=== PATIENT | female | born 1945 | race Caucasian/White ===

== ENCOUNTER → 2017-08-02 | Outpatient (CLI) | payer MEDICARE ==
--- NOTE | 2017-08-02 14:15 | BD ---
EXAMINATION TYPE: MG DEXA axial skeleton. DATE OF EXAM: 08/02/2017 COMPARISON: NONE CLINICAL HISTORY: M81.0 Osteoporosis Height: 64 Weight: 167.6 FRAX RISK QUESTIONS: Alcohol (3 or more units per day): NO Family History (Parent hip fracture): NO Glucocorticoids (More than 3mos): NO (Ex: prednisone, prednisolone, methylprednisolone, dexamethasone, and hydrocortisone). History of Fracture in Adulthood: NO Secondary Osteoporosis: 1. Type 1 Diabetes: NO 2. Hyperthyroidism: NO 3. Menopause before 45: NO 4. Malnutrition: NO 5. Chronic liver disease: NO Rheumatoid Arthritis: NO Current Tobacco Use: NO RISK FACTORS HISTORY OF: Hip Fracture (Right/Left): NO Spine Fracture: NO History of Wrist Fracture: NO Surgery to Spine/Hip(right/left)/Wrist (right/left): BILATERAL HIP REPLACEMENTS When: 9 YEARS AGO/ 12 YEARS Family History of Osteoporosis: YES Active: YES Diet low in dairy products/other sources of calcium: NO Postmenopausal woman: AROUND AGE 47 Lost more than 2 inches in height since high school: NO Frequent falls: NO Poor Health: NO Hyperparathyroidism: NO Adrenal Insufficiency: NO MEDICATIONS:BLOOD PRESSURE MED EXAM MEASUREMENTS: Bone mineral densitometry was performed using the ki work System. Bone mineral density as measured about the Lumbar spine is: ----- L1-L4(G/cm2): 1.088 T Score Values are as follows: ----- L2: -1.2 ----- L3: -0.6 ----- L4: -0.9 ----- L1-L4: -0.8 Bone mineral density has: DECREASED -7.5 % since study of: 8. IMPRESSION: No evidence for osteoporosis or osteopenia. NOTE: T-SCORE=SD OF THE YOUNG ADULT MEAN.
--- NOTE | 2017-08-03 07:56 | MM ---
Reason for exam: screening (asymptomatic). Last mammogram was performed 1 year and 1 month ago. History: Patient is postmenopausal. Took estrogen for 3 years beginning at age 47. Took progesterone for 3 years beginning at age 47. Physical Findings: A clinical breast exam by your physician is recommended on an annual basis and results should be correlated with mammographic findings. MG 3D Screening Mammo W/Cad Bilateral CC and MLO view(s) were taken. Prior study comparison: July 17, 2016, bilateral MG 3d screening mammo w/cad. July 16, 2015, bilateral MG screening mammo w CAD. The breast tissue is heterogeneously dense. This may lower the sensitivity of mammography. There are stable vascular calcifications. No significant changes when compared with prior studies. ASSESSMENT: Benign, BI-RAD 2 RECOMMENDATION: Routine screening mammogram of both breasts in 1 year.
== END | disposition home or self-care (01) ==
LOC: RADMAMWWP 07:27
PROVIDERS: ATTEND Family Medicine
DX: Z12.31 Encounter for screening mammogram for malignant neoplasm of breast (principal); M81.0 Age-related osteoporosis without current pathological fracture
CPT/HCPCS: 77080; 77063; G0202

== ENCOUNTER → 2018-01-31 | Outpatient (CLI) | payer MEDICARE ==
--- NOTE | 2018-02-04 13:14 | ECHOF ---
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 This was a technically adequate study. The left ventricular size is normal. There is moderate concentric left ventricular hypertrophy. O verall left ventricular systolic function is normal with, an EF between 55 - 60 %. Sigmoid shaped s eptum with focal hypertrophy of the basal septum. The remaining wall thickness is normal. The right ventricle is normal in size. Normal LA size by volume 22+/-6 ml/m2. The right atrium is normal in size. There is mild to moderate aortic valve sclerosis. There is mild aortic stenosis present. Peak/tyrese n gradient across the Aortic Valve is 15.83mmHg / 7.94mmHg. The mitral valve leaflets are mildly thickened. Mild mitral annular calcification present. Mild m itral regurgitation is present. Mild tricuspid regurgitation present. Right ventricular systolic pressure is normal at < 35 mmHg. Trace/mild (physiologic) pulmonic regurgitation. The aortic root size is normal. Normal inferior vena cava with normal inspiratory collapse consistent with estimated right atrial pre ssure of 5 mmHg. There is no pericardial effusion. CONCLUSIONS -------- 1. Sinus rhythm. 2. This was a technically adequate study. 3. The left ventricular size is normal. 4. There is moderate concentric left ventricular hypertrophy. 5. Overall left ventricular systolic function is normal with, an EF between 55 - 60 %. 6. Sigmoid shaped septum with focal hypertrophy of the basal septum. The remaining wall thickness is normal. 7. The right ventricle is normal in size. 8. Normal LA size by volume 22+/-6 ml/m2. 9. The right atrium is normal in size. 10. There is mild to moderate aortic valve sclerosis. 11. There is mild aortic stenosis present. 12. Peak/mean gradient across the Aortic Valve is 15.83mmHg / 7.94mmHg. 13. The mitral valve leaflets are mildly thickened. 14. Mild mitral annular calcification present. 15. Mild mitral regurgitation is present. 16. Mild tricuspid regurgitation present. 17. Right ventricular systolic pressure is normal at < 35 mmHg. 18. Trace/mild (physiologic) pulmonic regurgitation. 19. The aortic root size is normal. 20. Normal inferior vena cava with normal inspiratory collapse consistent with estimated right atrial pressure of 5 mmHg. 21. There is no pericardial effusion. PUBLIC HEALTH SANITARIAN: Genesis Lewis RDCS
== END | disposition home or self-care (01) ==
LOC: RADECHMAIN 15:25
PROVIDERS: ATTEND Family Medicine
DX: I08.3 Combined rheumatic disorders of mitral, aortic and tricuspid valves (principal)
CPT/HCPCS: 93306

== ENCOUNTER → 2018-08-15 | Outpatient (CLI) | payer MEDICARE ==
--- NOTE | 2018-08-15 13:05 | ECHOF ---
Referral Reason:I35.0 Nonrheumatic aortic stenosis MEASUREMENTS -------- HEIGHT: 162.6 cm WEIGHT: 68.0 kg BP: RVIDd: 1.8 cm (< 3.3) IVSd: 0.9 cm (0.6 - 1.1) LVIDd: 3.3 cm (3.9 - 5.3) LVPWd: 1.0 cm (0.6 - 1.1) IVSs: 1.2 cm LVIDs: 2.2 cm LVPWs: 1.2 cm LAESV Index (A-L): 19.24 ml/m Ao Diam: 2.8 cm (2.0 - 3.7) AV Cusp: 1.1 cm (1.5 - 2.6) LA Diam: 3.1 cm (2.7 - 3.8) EPSS: 0.3 cm MV E Jason: 0.89 m/s MV DecT: 283 ms MV A Jason: 0.90 m/s MV E/A Ratio: 1.00 AV maxP.63 mmHg AV meanP.14 mmHg RAP: 5.00 mmHg RVSP: 23.27 mmHg MV EF SLOPE: 87.73 mm/s (70 - 150) MV EXCURSION: 1.71 cm (> 18.000) FINDINGS -------- Sinus rhythm. This was a technically adequate study. The left ventricular size is normal. Left ventricular wall thickness is normal. Overall left vent ricular systolic function is normal with, an EF between 55 - 60 %. The right ventricle is normal in size and function. Normal LA size by volume 22+/-6 ml/m2. The right atrium is normal in size. There is mild to moderate aortic valve sclerosis. There is no evidence of aortic regurgitation. T here is mild aortic stenosis present. Peak/mean gradient across the Aortic Valve is 14.63mmHg / 8.1 4mmHg. The mitral valve leaflets are mildly thickened. Mild mitral annular calcification present. Mild m itral regurgitation is present. Trace tricuspid regurgitation present. Right ventricular systolic pressure is normal at < 35 mmHg. There is no evidence of pulmonary hypertension. Trace/mild (physiologic) pulmonic regurgitation. The aortic root size is normal. Normal inferior vena cava with normal inspiratory collapse consistent with estimated right atrial pre ssure of 5 mmHg. There is no pericardial effusion. CONCLUSIONS -------- 1. Sinus rhythm. 2. This was a technically adequate study. 3. The left ventricular size is normal. 4. Left ventricular wall thickness is normal. 5. Overall left ventricular systolic function is normal with, an EF between 55 - 60 %. 6. Normal LA size by volume 22+/-6 ml/m2. 7. There is mild to moderate aortic valve sclerosis. 8. There is mild aortic stenosis present. 9. Peak/mean gradient across the Aortic Valve is 14.63mmHg / 8.14mmHg. 10. The mitral valve leaflets are mildly thickened. 11. Mild mitral annular calcification present. 12. Mild mitral regurgitation is present. 13. Trace tricuspid regurgitation present. 14. Right ventricular systolic pressure is normal at < 35 mmHg. 15. There is no evidence of pulmonary hypertension. 16. Trace/mild (physiologic) pulmonic regurgitation. 17. The aortic root size is normal. 18. There is no pericardial effusion. PATIENT SERVICES ASSISTANT: Arsenio Clarke RDCS
--- NOTE | 2018-08-15 14:28 | MM ---
Reason for exam: screening (asymptomatic). Last mammogram was performed 1 year ago. History: Patient is postmenopausal. Took estrogen for 3 years beginning at age 47. Took progesterone for 3 years beginning at age 47. Physical Findings: A clinical breast exam by your physician is recommended on an annual basis and results should be correlated with mammographic findings. MG 3D Screening Mammo W/Cad Bilateral CC and MLO view(s) were taken. Prior study comparison: August 02, 2017, bilateral MG 3d screening mammo w/cad. July 17, 2016, bilateral MG 3d screening mammo w/cad. The breast tissue is heterogeneously dense. This may lower the sensitivity of mammography. Finding: There are typically benign vascular, dystrophic, round calcifications in both breasts. Asymmetric breast tissue right central aspect, stable. There is no discrete abnormality. Vessel left posterior breast. ASSESSMENT: Benign, BI-RAD 2 RECOMMENDATION: Routine screening mammogram of both breasts in 1 year.
== END | disposition home or self-care (01) ==
LOC: RADMAMWWP 07:36
PROVIDERS: ATTEND Family Medicine
DX: Z12.31 Encounter for screening mammogram for malignant neoplasm of breast (principal); I35.8 Other nonrheumatic aortic valve disorders; I35.0 Nonrheumatic aortic (valve) stenosis; I34.0 Nonrheumatic mitral (valve) insufficiency
CPT/HCPCS: 77063; 77067; 93306

== ENCOUNTER 2018-09-30 07:46 | Day surgery (SDC) | payer MEDICARE ==
[~2018-09-30 07:46] MED LIST: ALPRAZolam 0.25 MG TAB PO PRN; ALPRAZolam 0.5 MG TAB PO PRN; ASPIRIN 325 MG TAB PO ONE; ATORVASTATIN 80 MG TAB PO ONE; NITROGLYCERIN SL TABS 0.4 MG TAB SUBLINGUAL PRN; SODIUM CHLORIDE 0.9% 1,000 ML in EMPTY BAG 1 BAG IV ONE
[2018-09-30] MEDS ORDERED: MIDAZOLAM 2 MG/2 ML VIAL ONE (08:37)
[2018-09-30] MEDS ORDERED: fentaNYL (PF) 50 MCG/ML 2 ML AMP ONE (08:38)
[2018-09-30] MEDS ORDERED: LIDOCAINE 1% INJ 10MG/ML (20 ML MDV) ONE (08:38)
[2018-09-30] MEDS ORDERED: MIDAZOLAM 2 MG/2 ML VIAL IVP ONE (09:00)
[2018-09-30] MEDS ORDERED: fentaNYL (PF) 50 MCG/ML 2 ML AMP IV ONE (09:00)
[2018-09-30] MEDS ORDERED: LIDOCAINE 1% INJ 10MG/ML (20 ML MDV) SQ ONE ×2 (09:02→11:51)
[2018-09-30] MEDS ORDERED: HEPARIN SODIUM 1,000 UN/ML (10ML VL) ONE (09:20)
[2018-09-30] MEDS ORDERED: IOPAMIDOL-370 125ML BTL INJ ONE (09:27)
--- NOTE | 2018-09-30 10:30 | CC ---
CARDIAC CATHETERIZATION REPORT Referring physician is Dr. Vazquez. INDICATION: Precordial chest pain with abnormal stress test. PROCEDURE NOTE: After obtaining informed consent, left heart catheterization and coronary angiogram were performed via the right femoral artery using standard Aida catheters. Patient tolerated the procedure well without any obvious immediate complications. A femoral angiogram was performed. Patient received moderate conscious sedation and total sedation time was 15 minutes. FINDINGS: 1. HEMODYNAMICS: Left ventricular end-diastolic pressure is 12 to 14 mm. There is no significant gradient across THE aortic valve. 2. LEFT VENTRICULOGRAM: Left ventriculogram is not performed. 3. ANGIOGRAPHIC DATA: Left Main Coronary Artery: Left main coronary artery appears calcified but is free of significant stenosis. Divides into left anterior descending coronary artery and circumflex coronary artery Circumflex coronary artery is a large nondominant vessel that shows a focal 95% stenosis. LAD gives off a large caliber diagonal branch and its midportion has a long segment of 70% stenosis. Right coronary artery is a large dominant vessel that shows mild nonobstructive disease. CONCLUSIONS: 1. A 95% stenosis involving middle portion of the circumflex coronary artery. 2. A long segment of 70% stenosis involving left anterior descending artery. PLAN: Patient will undergo angioplasty with stent placement of circumflex coronary artery and LAD by Dr. Roc Burgess the on-call arabic linguist. MMODL / IJN: [id number] /
--- NOTE | 2018-09-30 10:36 | LTR ---
September 30, 2018 Re: Esther Ramírez Dear Reji: I performed cardiac catheterization on Esther Ramírez. A detailed catheterization note is enclosed for your records. In brief, the invasive angiography revealed critical stenosis involving circumflex coronary artery and significant disease involving mid LAD and patient will undergo angioplasty with stent placement for the same. Thank you for giving me the privilege to participate in the care of this pleasant lady. Sincerely, MD MILLICENT Ruiz / MARGARETN: [id number] /
[2018-09-30] MEDS ORDERED: IV FLUID CONTINUATION 1,000 ML IV ONE (11:29)
[2018-09-30] MEDS: MIDAZOLAM 2 MG/2 ML VIAL IV ONE ×2 (11:51→11:57)
[2018-09-30] MEDS ORDERED: BIVALIRUDIN BOLUS 250 MG/50 ML IV ONE (11:52)
[2018-09-30] MEDS ORDERED: BIVALIRUDIN 250 MG in SODIUM CHLORIDE 0.9% 50 ML IV ONE (11:53)
[2018-09-30] MEDS: NITROGLYCERIN 1000MCG/10ML SYRINGE INTRACORON ONE ×2 (12:05→12:21)
[2018-09-30] MEDS ORDERED: NITROGLYCERIN 1000MCG/10ML SYRINGE INTRACORON ONE (12:05)
[2018-09-30] MEDS ORDERED: IOPAMIDOL-370 100ML BTL INJ ONE ×3 (12:13→12:28)
[2018-09-30] MEDS ORDERED: MORPHINE SULFATE 4 MG/ML SYRINGE IV ONE (12:28)
[2018-09-30] MEDS ORDERED: TICAGRELOR 90 MG TAB PO ONE (12:29)
[2018-09-30] MEDS ORDERED: ZOLPIDEM 5 MG TAB PO PRN (12:37)
[2018-09-30] MEDS ORDERED: NITROGLYCERIN SL TABS 0.4 MG TAB SUBLINGUAL PRN (12:37)
[2018-09-30] MEDS ORDERED: ATROPINE SULFATE 0.1 MG/ML 10ML SYRINGE IV PRN (12:37)
[2018-09-30] MEDS ORDERED: MAG HYDROX/AL HYDROX/SIMETH 30 ML CUP PO PRN (12:37)
[2018-09-30] MEDS ORDERED: RX INFO: IV CONTRAST WAS GIVEN 1 EACH MISC MISCELLANE PRN (12:37)
[2018-09-30] MEDS ORDERED: NITROGLYCERIN SL TABS 0.4 MG TAB SUBLINGUAL SCH (13:04)
[2018-09-30 14:59] VITALS: BMI 24.9
[2018-09-30] MEDS: SODIUM CHLORIDE 0.9% 1,000 ML IV SCH (15:17)
[2018-09-30] MEDS: ATENOLOL 25 MG TAB PO SCH (20:51)
--- NOTE | 2018-09-30 20:55 | CC ---
CARDIAC CATHETERIZATION REPORT DATE OF SERVICE: 09/30/2018 PROCEDURES: 1. Percutaneous transluminal coronary angioplasty and stenting of mid circumflex coronary artery with a drug-eluting stent. 2. Percutaneous transluminal coronary angioplasty and stenting of a long segment of mid left anterior descending coronary artery with 2 drug-eluting stents. PERFORMED BY: Dr. Fam Burgess. Moderate conscious sedation time was about 42 minutes. CLINICAL INFORMATION: Mrs. Esther Ramírez is a 73-year-old lady with history of diet-controlled diabetes, hypertension, hyperlipidemia, with symptoms of angina and a positive stress test. She was seen and evaluated by Dr. Higgins, who performed a cardiac cath that revealed a tight 95% stenosis involving the mid portion of a non-dominant circumflex coronary artery which also had other areas of 30% to 40% narrowing. Additionally, LAD had a long 80% lesion. She was advised intervention that was performed on the same day. PROCEDURE NOTE: The existing 6-Faroese introducer in the right femoral artery was used to perform the procedure. A standard left Aida type guide catheter was used to cannulate the left coronary artery. A run-through wire was used to cross the lesion in the circumflex coronary artery. A 2.5 caliber 8 mm long NC Trek balloon was used to pre-dilate the lesion. A 2.75 caliber 12 mm long Xience stent was deployed in the mid circumflex at 12 atmospheres. Excellent angiographic result was achieved without complication. Patient had mild chest discomfort and ST depression involving the precordial V1 and V2 leads. Attention was then turned to the LAD lesion. The same wire was advanced and positioned in the distal LAD. Without predilatation a 23 mm long 2.75 caliber Xience stent was deployed in the long segment of disease in the LAD. Patient had significant chest pain, ventricular ectopy and ST elevation in the precordial leads. Proximal to the stented segment was an area of haziness, and this was addressed with a 2.5 caliber 8 mm Xience stent that was telescoped into it. Excellent angiographic result was achieved without complication. Patient received Angiomax bolus and infusion. She also received Brilinta 180 mg orally. The sheath was then taken out and a Perclose device used to secure hemostasis and she was sent to the room in a stable condition. Excellent angiographic result without complication was achieved. Results were discussed with the patient and her . I expect she will be discharged tomorrow if she remains stable. MMBRENNA / IJN: [id number] /
[2018-09-30] MEDS ORDERED: ATORVASTATIN 80 MG TAB PO SCH (23:00)
[2018-10-01 00:05] VITALS: RESP 16
[2018-10-01] MEDS: SODIUM CHLORIDE 0.9% 1,000 ML IV SCH (03:51)
[2018-10-01 06:17] LABS: Basophils % (A) 0 %; Eosinophils # (A) 0.2 k/uL (0-0.7); Eosinophils % (A) 3 %; HGB 12.3 gm/dL (11.4-16.0); Lymphocytes # (A) 1.6 k/uL (1.0-4.8); Lymphocytes % (A) 27 %; MCHC 32.4 g/dL (31.0-37.0); MCV 98.8 fL (80.0-100.0); Mean Platelet Volume 7.1; Monocytes # (A) 0.3 k/uL (0-1.0); Monocytes % (A) 5 %; Neutrophils # (A) 3.9 k/uL (1.3-7.7); Neutrophils % (A) 63 %; Platelet Count 306 k/uL (150-450); RBC 3.84 m/uL (3.80-5.40); RDW 13.4 % (11.5-15.5); WBC 6.1 k/uL (3.8-10.6)
[2018-10-01 06:28] LABS: Anion Gap 5 mmol/L; Blood Urea Nitrogen 13 mg/dL (7-17); Calcium 9.4 mg/dL (8.4-10.2); Carbon Dioxide 28 mmol/L (22-30); Chloride 104 mmol/L (98-107); Glucose 92 mg/dL (74-99); Potassium 3.8 mmol/L (3.5-5.1); Sodium 137 mmol/L (137-145)
[2018-10-01] MEDS ORDERED: ASPIRIN 81 MG PO SCH (09:00)
[2018-10-01] MEDS ORDERED: HYDROCHLOROTHIAZIDE 25 MG TAB PO SCH (09:00)
[2018-10-01] MEDS ORDERED: CLOPIDOGREL 75 MG TAB PO SCH (09:00)
[2018-10-01] MEDS: ATENOLOL 25 MG TAB PO SCH (09:29)
--- NOTE | 2018-10-01 09:37 | DS ---
DISCHARGE SUMMARY DATE OF ADMISSION: 09/30/2018 DATE OF DISCHARGE: 10/01/2018. FINAL DIAGNOSIS: Chest pain with abnormal stress test. PROCEDURES PERFORMED: 1. Left heart catheterization. 2. Angioplasty with stent placement in LAD and circumflex coronary artery. HOSPITAL COURSE: This is a 73-year-old lady that presented to me with symptoms of chest pain, underwent a stress test that showed ischemia and was advised to undergo cardiac catheterization. Cardiac catheterization revealed significant two-vessel coronary artery disease involving LAD and circumflex coronary artery. She underwent angioplasty with stent placement with drug-eluting stents. Her angioplasty went well. She is doing well this morning, free of symptoms, ambulating without any problems. EKG does not reveal ischemic changes. I reviewed her labs. Hemoglobin is 12.3. Platelet count is 306. Potassium is . EKG is normal. CONDITION AT THE TIME OF DISCHARGE: Vital signs are stable. There is no jugular venous distention. Chest exam reveals good air entry bilaterally. Heart exam reveals first and second heart sounds. No gallop. Groin is free of bleeding, bruit, hematoma. Foot pulses are intact. FOLLOWUP: Patient will be followed up in my office in a week's time. DISCHARGE MEDICATIONS: The patient will be discharged home on: \ 1. Aspirin. 2. Atenolol. 3. Imdur. 4. Plavix 75 mg daily. 5. Lipitor 80 mg daily. 6. Sublingual nitroglycerin on p.r.n. basis. 7. Hydrochlorothiazide. MMAJL / MARGARETN: [id number] /
[2018-10-01 09:45] VITALS: BP 113/60; PULSE 77; TEMP 98.1
[2018-10-01] MEDS ORDERED: MULTIVITAMINS, THERA 1 EACH TAB PO SCH (12:00)
== END 2018-10-01 09:35 | disposition home or self-care (01) ==
LOC: CATHCVL 07:46 → 3SCARD 12:32 → CATHCVL 10-01 09:35
PROVIDERS: ATTEND Internal Medicine Cardiovascular Disease
DX: I25.10 Atherosclerotic heart disease of native coronary artery without angina pectoris (principal); R94.39 Abnormal result of other cardiovascular function study; I35.0 Nonrheumatic aortic (valve) stenosis; I10 Essential (primary) hypertension; Z82.49 Family history of ischemic heart disease and other diseases of the circulatory system; Z79.82 Long term (current) use of aspirin; Z79.899 Other long term (current) drug therapy
CPT/HCPCS: 93458; 80048; 85025; C9600 ×2; C1769 ×3; C1887; C1725; C1894; C1760; C1874; J2250; J2270; J2001; J3010; J0583; Q9967 ×2

== ENCOUNTER 2018-11-11 20:17 | Emergency (ER) | payer MEDICARE ==
--- NOTE | 2018-11-11 21:00 | ED ---
General Adult HPI - General Chief complaint: Recheck/Abnormal Lab/Rx Stated complaint: High BP Time Seen by Provider: 11/11/18 20:59 Source: patient, family Mode of arrival: ambulatory Limitations: no limitations - History of Present Illness Initial comments: This patient is a 73-year-old woman who presents to have evaluation for high blood pressure. She reports that she had taken her blood pressure tonight around 7:15, which is routine for her and found that it was in the neighborhood of 170/90. She states that it is never this high so she was concerned. After waiting interval and taking and it was slightly higher so she presented here to be evaluated. The patient states that at the time she had been at home sitting at the table just resting. She did note that she felt like her cheeks were flushed, but she was not having any other real symptoms. She denied having any fever or chills, chest pain, dyspnea, diaphoresis, nausea or vomiting. There was no headache, no abdominal pain. No strokelike symptoms. Onset/Timin -: hour(s) Location: face ([place]) Severity scale (1-10): 0 Consistency: now resolved Improves with: none Worsens with: none Associated Symptoms: denies other symptoms Treatments Prior to Arrival: none - Related Data Home Medications Medication Instructions Recorded Confirmed Aspirin [Adult Low Dose Aspirin EC] 81 mg PO DAILY 08/20/18 11/11/18 Atenolol 25 mg PO BID 08/20/18 11/11/18 Hydrochlorothiazide 25 mg PO DAILY 08/20/18 11/11/18 Calcium Carbonate/Vitamin D3 1 each PO DAILY 09/27/18 11/11/18 [Calcium 500-Vit D3 600 Tablet] Inulin/Chromium Picolinate [Fiber 2 each PO DAILY 09/27/18 11/11/18 Gummies Chew] Isosorbide Mononitrate [Isosorbide 30 mg PO DAILY 09/27/18 11/11/18 Mononitrate ER] Multivit-Min/Iron/Folic/Lutein 1 each PO DAILY 09/27/18 11/11/18 [Centrum Silver Women Tablet] Nitroglycerin 0.4 mg PO DIRECTED 09/30/18 11/11/18 Previous Rx's Medication Instructions Recorded Atorvastatin [Lipitor] 80 mg PO HS #90 tab 10/01/18 Clopidogrel [Plavix] 75 mg PO DAILY #90 tab 10/01/18 Allergies Allergy/AdvReac Type Severity Reaction Status Date / Time ibuprofen [From Advil] AdvReac Abdominal Verified 11/11/18 21:16 Pain nabumetone AdvReac Hallucinati Verified 11/11/18 21:16 ons naproxen [From Aleve] AdvReac Abdominal Verified 11/11/18 21:16 Pain Review of Systems ROS Statement: Those systems with pertinent positive or pertinent negative responses have been documented in the HPI. ROS Other: All systems not noted in ROS Statement are negative. Constitutional: Denies: fever, chills, weakness Eyes: Denies: vision change Respiratory: Denies: cough, dyspnea Cardiovascular: Denies: chest pain, palpitations, dyspnea on exertion, edema, syncope Gastrointestinal: Denies: abdominal pain, nausea, vomiting Genitourinary: Denies: dysuria Musculoskeletal: Denies: back pain Skin: Denies: rash Neurological: Denies: headache, weakness, numbness, paresthesias, confusion Past Medical History Past Medical History: Coronary Artery Disease (CAD), Hyperlipidemia, Hypertension Additional Past Medical History / Comment(s): Aortic Valve disorder, Mitral/ aortic incompetence, regurgitation History of Any Multi-Drug Resistant Organisms: None Reported Past Surgical History: Section, Heart Catheterization With Stent, Joint Replacement, Orthopedic Surgery Additional Past Surgical History / Comment(s): RT knee surgery,BILAT FAM, COLONOSCOPY, Past Anesthesia/Blood Transfusion Reactions: No Reported Reaction Past Psychological History: No Psychological Hx Reported Smoking Status: Never smoker - Past Family History Father Family Medical History: Cancer General Exam Limitations: no limitations General appearance: alert, in no apparent distress Head exam: Present: atraumatic, normocephalic Eye exam: Present: normal appearance. Absent: scleral icterus, conjunctival injection ENT exam: Present: normal oropharynx Neck exam: Present: normal inspection Respiratory exam: Present: normal lung sounds bilaterally. Absent: respiratory distress, wheezes, rales, rhonchi, stridor Cardiovascular Exam: Present: regular rate, normal rhythm, systolic murmur ( Grade 2/6 systolic ejection murmur, insistent with aortic stenosis). Absent: diastolic murmur, rubs, gallop GI/Abdominal exam: Present: soft. Absent: distended, tenderness, guarding, rebound, rigid, mass Extremities exam: Present: normal inspection, normal capillary refill. Absent: pedal edema, calf tenderness Back exam: Present: normal inspection. Absent: CVA tenderness (R), CVA tenderness (L) Neurological exam: Present: alert, oriented X3 Skin exam: Present: warm, dry, intact, normal color. Absent: rash Course Vital Signs 11/11/18 11/11/18 11/11/18 20:28 21:00 21:30 Temperature 98 F Pulse Rate 65 59 L 56 L Respiratory 16 18 16 Rate Blood Pressure 207/79 164/86 162/75 O2 Sat by Pulse 100 97 96 Oximetry 11/11/18 22:00 Temperature Pulse Rate 56 L Respiratory 13 Rate Blood Pressure 158/77 O2 Sat by Pulse 96 Oximetry EKG Findings - EKG Results: EKG: interpreted by RANDY UGARTE, sinus rhythm (Rate 62 bpm), normal axis, normal QRS, normal ST/T, no acute changes - PA, Pacemaker, Normal: Normal tracing: normal tracing Medical Decision Making - Lab Data Result diagrams: 11/11/18 21:10 11/11/18 21:10 Lab Results 11/11/18 11/11/18 Range/Units 21:10 21:10 WBC 5.7 (3.8-10.6) k/uL RBC 3.94 (3.80-5.40) m/uL Hgb 12.4 (11.4-16.0) gm/dL Hct 38.2 (34.0-46.0) % MCV 96.8 (80.0-100.0) fL MCH 31.5 (25.0-35.0) pg MCHC 32.5 (31.0-37.0) g/dL RDW 13.2 (11.5-15.5) % Plt Count 309 (150-450) k/uL Neutrophils % 68 % Lymphocytes % 19 % Monocytes % 6 % Eosinophils % 4 % Basophils % 1 % Neutrophils # 3.9 (1.3-7.7) k/uL Lymphocytes # 1.1 (1.0-4.8) k/uL Monocytes # 0.3 (0-1.0) k/uL Eosinophils # 0.2 (0-0.7) k/uL Basophils # 0.1 (0-0.2) k/uL Sodium 132 L (137-145) mmol/L Potassium 4.1 (3.5-5.1) mmol/L Chloride 97 L (98-107) mmol/L Carbon Dioxide 26 (22-30) mmol/L Anion Gap 9 mmol/L BUN 21 H (7-17) mg/dL Creatinine 0.71 (0.52-1.04) mg/dL Est GFR (CKD-EPI)AfAm >90 (>60 ml/min/1.73 sqM) Est GFR (CKD-EPI)NonAf 85 (>60 ml/min/1.73 sqM) Glucose 111 H (74-99) mg/dL Calcium 9.5 (8.4-10.2) mg/dL Disposition Clinical Impression: Hypertension Disposition: HOME SELF-CARE Condition: Good Instructions: Hypertension (ED) Is patient prescribed a controlled substance at d/c from ED?: No Referrals: Moreno Vazquez DO [Primary Care Provider] - 1-2 days
[2018-11-11 22:06] LABS: Basophils # (A) 0.1 k/uL (0-0.2); Basophils % (A) 1 %; Eosinophils # (A) 0.2 k/uL (0-0.7); Eosinophils % (A) 4 %; HCT 38.2 % (34.0-46.0); HGB 12.4 gm/dL (11.4-16.0); Lymphocytes # (A) 1.1 k/uL (1.0-4.8); Lymphocytes % (A) 19 %; MCH 31.5 pg (25.0-35.0); MCHC 32.5 g/dL (31.0-37.0); MCV 96.8 fL (80.0-100.0); Monocytes # (A) 0.3 k/uL (0-1.0); Monocytes % (A) 6 %; Neutrophils # (A) 3.9 k/uL (1.3-7.7); Neutrophils % (A) 68 %; Platelet Count 309 k/uL (150-450); RBC 3.94 m/uL (3.80-5.40); RDW 13.2 % (11.5-15.5); WBC 5.7 k/uL (3.8-10.6)
[2018-11-11 22:22] LABS: Anion Gap 9 mmol/L; Blood Urea Nitrogen 21 mg/dL (7-17); Calcium 9.5 mg/dL (8.4-10.2); Carbon Dioxide 26 mmol/L (22-30); Chloride 97 mmol/L (98-107); Glucose 111 mg/dL (74-99); Potassium 4.1 mmol/L (3.5-5.1); Sodium 132 mmol/L (137-145)
[2018-11-11 23:05] VITALS: BP 148/74; PULSE 54; RESP 18; TEMP 97.4
== END 2018-11-11 23:07 | disposition home or self-care (01) ==
LOC: EC 20:17
DX: I10 Essential (primary) hypertension (principal); R01.1 Cardiac murmur, unspecified; R23.2 Flushing; I25.10 Atherosclerotic heart disease of native coronary artery without angina pectoris; Z88.6 Allergy status to analgesic agent; Z79.4 Long term (current) use of insulin; Z79.82 Long term (current) use of aspirin; Z79.899 Other long term (current) drug therapy; Z86.79 Personal history of other diseases of the circulatory system; Z95.5 Presence of coronary angioplasty implant and graft; Z96.643 Presence of artificial hip joint, bilateral
CPT/HCPCS: 36415; 80048; 85025; 93005; 99283

== ENCOUNTER 2019-07-18 15:19 | Emergency (ER) | payer MEDICARE ==
[2019-07-18 15:35] VITALS: BP 166/75; PULSE 59; RESP 18; TEMP 97.9
--- NOTE | 2019-07-18 16:28 | US ---
EXAMINATION TYPE: US venous doppler duplex LE RT DATE OF EXAM: 07/18/2019 4:17 PM COMPARISON: NONE CLINICAL HISTORY: Pain. injuried knee while gardening, patient thinks she had dvt 49 years ago SIDE PERFORMED: right TECHNIQUE: The lower extremity deep venous system is examined utilizing real time linear array sonog jordan with graded compression, doppler sonography and color-flow sonography. VESSELS IMAGED: External Iliac Vein (EIV) Common Femoral Vein Deep Femoral Vein Greater Saphenous Vein * Femoral Vein Popliteal Vein Small Saphenous Vein * Proximal Calf Veins (* superficial vessels) Right Leg: Appears negative for DVT at site of injury anterior to knee, there is a probable hematoma = 2.0 x 1.4 x 1.1cm IMPRESSION: Soft tissue hematoma without evidence for DVT at this time.
--- NOTE | 2019-07-18 16:42 | ED ---
General Adult HPI - General Chief complaint: Extremity Injury, Lower Stated complaint: Possible blood clot, leg pain Time Seen by Provider: 07/18/19 15:39 Source: patient, RN notes reviewed, old records reviewed Mode of arrival: ambulatory Limitations: no limitations - History of Present Illness Initial comments: Patient is a 74-year-old female presents weren't today with concern for swelling over her right knee. Patient reports she was doing work outside and when she came and said she noticed some swelling over the right knee. She states that she had no significant for, she is aware. She is concerned possible blood clot. She said history of blood clots in the past and is on blood thinners and takes them regularly. She denies any peripheral paresthesias.Patient denies any recent fever, chills, shortness of breath, chest pain, back pain, abdominal pain, nausea vomiting, numbness or tingling, dysuria or hematuria, constipation or diarrhea, headaches or visual changes, or any other current symptoms - Related Data Home Medications Medication Instructions Recorded Confirmed Aspirin [Adult Low Dose Aspirin EC] 81 mg PO DAILY 08/20/18 11/11/18 Atenolol 25 mg PO BID 08/20/18 11/11/18 Hydrochlorothiazide 25 mg PO DAILY 08/20/18 11/11/18 Calcium Carbonate/Vitamin D3 1 each PO DAILY 09/27/18 11/11/18 [Calcium 500-Vit D3 600 Tablet] Inulin/Chromium Picolinate [Fiber 2 each PO DAILY 09/27/18 11/11/18 Gummies Chew] Isosorbide Mononitrate [Isosorbide 30 mg PO DAILY 09/27/18 11/11/18 Mononitrate ER] Multivit-Min/Iron/Folic/Lutein 1 each PO DAILY 09/27/18 11/11/18 [Centrum Silver Women Tablet] Nitroglycerin 0.4 mg PO DIRECTED 09/30/18 11/11/18 Previous Rx's Medication Instructions Recorded Atorvastatin [Lipitor] 80 mg PO HS #90 tab 10/01/18 Clopidogrel [Plavix] 75 mg PO DAILY #90 tab 10/01/18 Allergies Allergy/AdvReac Type Severity Reaction Status Date / Time ibuprofen [From Advil] AdvReac Abdominal Verified 07/18/19 15:35 Pain nabumetone AdvReac Hallucinati Verified 07/18/19 15:35 ons naproxen [From Aleve] AdvReac Abdominal Verified 07/18/19 15:35 Pain Review of Systems ROS Statement: Those systems with pertinent positive or pertinent negative responses have been documented in the HPI. ROS Other: All systems not noted in ROS Statement are negative. Past Medical History Past Medical History: Coronary Artery Disease (CAD), Hyperlipidemia, Hypertension Additional Past Medical History / Comment(s): Aortic Valve disorder, Mitr al/aortic incompetence, regurgitation History of Any Multi-Drug Resistant Organisms: None Reported Past Surgical History: Section, Heart Catheterization With Stent, Joint Replacement, Orthopedic Surgery Additional Past Surgical History / Comment(s): RT knee surgery,BILAT FAM, COLONOSCOPY, Past Anesthesia/Blood Transfusion Reactions: No Reported Reaction Past Psychological History: No Psychological Hx Reported Smoking Status: Never smoker Past Alcohol Use History: Occasional Past Drug Use History: None Reported - Past Family History Father Family Medical History: Cancer General Exam - General Exam Comments Initial Comments: 74-year-old female. Alert and oriented. No distress. General: Well appearing, well nourished, in no distress. Oriented x 3, normal mood and affect . Ambulating without difficulty. Skin: Good turgor, no rash, unusual bruising or prominent lesions Hair: Normal texture and distribution. HEENT: Head: Normocephalic, atraumatic, no visible or palpable masses, depressions, or scaring. Eyes: Visual acuity intact, conjunctiva clear, sclera non-icteric, EOM intact, PERRL. Ears: EACs clear, TMs translucent & cone of light visualized. hearing intact. Nose: No external lesions, mucosa non-inflamed, septum and turbinates normal Mouth: Mucous membranes moist, no mucosal lesions. Teeth/Gums: No obvious caries or periodontal disease. No gingival inflammation or significant resorption. Pharynx: Mucosa non-inflamed, no tonsillar hypertrophy or exudate Neck: Supple, without lesions, bruits, or adenopathy, thyroid non-enlarged and non-tender Heart: No cardiomegaly or thrills; regular rate and rhythm, no murmur or gallop Lungs: Clear to auscultation and percussion Abdomen: Bowel sounds normal, no tenderness, organomegaly, masses, or hernia Extremities: No amputations or deformities. Patient has hematoma over the anterior aspect of the right patella. Full range of motion noted. No calf tenderness. Musculoskeletal: Normal gait and station. No misalignment, asymmetry, crepitation, defects, tenderness, masses, effusions, decreased range of motion, instability, atrophy or abnormal strength or tone in the head, neck, spine, ribs, pelvis or extremities. Neurologic: CN 2-12 normal. Sensation to pain, touch, and proprioception normal. DTRs normal in upper and lower extremities. No pathologic reflexes. Psychiatric: Oriented X3, intact recent and remote memory, judgment and insight, normal mood and affect. Limitations: no limitations Course Vital Signs 07/18/19 15:33 Temperature 97.9 F Pulse Rate 59 L Respiratory 18 Rate Blood Pressure 166/75 O2 Sat by Pulse 100 Oximetry Medical Decision Making - Medical Decision Making 74-year-old female presents with left knee swelling after doing yard work. She is concerned for possible DVT. Ultrasound stated for DVT. Discussed therapeutic swelling is likely hematoma. Patient has range of motion and a normal pulses distally. Discussed from compresses and Motrin Tylenol for pain. - Radiology Data Radiology results: report reviewed Patient's ultrasound is negative for DVT. 1.4 cm x 2.0 cm hematoma in the left anterior knee. Disposition Clinical Impression: Leg hematoma Disposition: HOME SELF-CARE Condition: Good Instructions (If sedation given, give patient instructions): Hematoma (ED) Additional Instructions: Patient advised to follow-up with primary care physician. Return to the emergency department if any alarming signs or symptoms occur. Patient should apply warm compresses over the area. Patient can take Motrin Tylenol for pain. Wear the Jamey wrap over the knee. Is patient prescribed a controlled substance at d/c from ED?: No Referrals: Moreno Vazquez DO [Primary Care Provider] - 1-2 days Time of Disposition: 16:41
== END 2019-07-18 16:51 | disposition home or self-care (01) ==
LOC: EC 15:19
DX: S80.01XA Contusion of right knee, initial encounter (principal); I35.9 Nonrheumatic aortic valve disorder, unspecified; I25.10 Atherosclerotic heart disease of native coronary artery without angina pectoris; I10 Essential (primary) hypertension; Z95.5 Presence of coronary angioplasty implant and graft; Z96.643 Presence of artificial hip joint, bilateral; Z86.718 Personal history of other venous thrombosis and embolism; Z79.4 Long term (current) use of insulin; Z79.899 Other long term (current) drug therapy; Z88.6 Allergy status to analgesic agent; W22.8XXA Striking against or struck by other objects, initial encounter; Y93.89 Activity, other specified; Y92.89 Other specified places as the place of occurrence of the external cause
CPT/HCPCS: 99284

== ENCOUNTER → 2019-08-18 | Outpatient (CLI) | payer MEDICARE ==
--- NOTE | 2019-08-19 10:11 | MM ---
Reason for exam: screening (asymptomatic). Last mammogram was performed 1 year ago. History: Patient is postmenopausal. Took estrogen for 3 years beginning at age 47. Took progesterone for 3 years beginning at age 47. Physical Findings: A clinical breast exam by your physician is recommended on an annual basis and results should be correlated with mammographic findings. MG 3D Screening Mammo W/Cad Bilateral CC and MLO view(s) were taken. Prior study comparison: August 15, 2018, bilateral MG 3d screening mammo w/cad. August 02, 2017, bilateral MG 3d screening mammo w/cad. The breast tissue is heterogeneously dense. This may lower the sensitivity of mammography. Benign appearing bilateral calcifications. No suspicious abnormality. No significant changes when compared with prior studies. ASSESSMENT: Benign, BI-RAD 2 RECOMMENDATION: Routine screening mammogram of both breasts in 1 year.
== END ==
LOC: RADMAMWWP 08:53
PROVIDERS: ATTEND Family Medicine
DX: Z12.31 Encounter for screening mammogram for malignant neoplasm of breast (principal)
CPT/HCPCS: 77063; 77067

== ENCOUNTER → 2020-10-07 | Outpatient (CLI) | payer MEDICARE ==
--- NOTE | 2020-10-08 12:25 | MM ---
Reason for exam: screening (asymptomatic). Last mammogram was performed 1 year and 2 months ago. History: Patient is postmenopausal. Took estrogen for 3 years beginning at age 47. Took progesterone for 3 years beginning at age 47. Physical Findings: A clinical breast exam by your physician is recommended on an annual basis and results should be correlated with mammographic findings. MG 3D Screening Mammo W/Cad Bilateral CC and MLO view(s) were taken. Prior study comparison: August 18, 2019, bilateral MG 3d screening mammo w/cad. August 15, 2018, bilateral MG 3d screening mammo w/cad. The breast tissue is heterogeneously dense. This may lower the sensitivity of mammography. No significant changes when compared with prior studies. ASSESSMENT: Benign, BI-RAD 2 RECOMMENDATION: Routine screening mammogram of both breasts in 1 year.
== END | disposition home or self-care (01) ==
LOC: RADMAMWWP 07:48
PROVIDERS: ATTEND Family Medicine
DX: Z12.31 Encounter for screening mammogram for malignant neoplasm of breast (principal)
CPT/HCPCS: 77063; 77067

== ENCOUNTER → 2021-10-12 | Outpatient (CLI) | payer MEDICARE ==
--- NOTE | 2021-10-13 12:22 | MM ---
Reason for exam: screening (asymptomatic). Last mammogram was performed 1 year ago. History: Patient is postmenopausal. Took estrogen for 3 years beginning at age 47. Took progesterone for 3 years beginning at age 47. Physical Findings: A clinical breast exam by your physician is recommended on an annual basis and results should be correlated with mammographic findings. MG 3D Screening Mammo W/Cad Bilateral CC and MLO view(s) were taken. Prior study comparison: October 07, 2020, bilateral MG 3d screening mammo w/cad. August 18, 2019, bilateral MG 3d screening mammo w/cad. The breast tissue is heterogeneously dense. This may lower the sensitivity of mammography. Focal asymmetry upper outer right breast zone B. ASSESSMENT: Incomplete: need additional imaging evaluation, BI-RAD 0 RECOMMENDATION: Special view mammogram of the right breast. If lesion persists on supplemental views, image directed ultrasound is recommended. [facility] will attempt to contact patient to return for supplemental views and ultrasound if indicated.
== END ==
LOC: RADMAMWWP 11:07
PROVIDERS: ATTEND Family Medicine
DX: Z12.31 Encounter for screening mammogram for malignant neoplasm of breast (principal); Z78.0 Asymptomatic menopausal state
CPT/HCPCS: 77063; 77067

== ENCOUNTER → 2021-10-28 | Outpatient (CLI) | payer MEDICARE ==
--- NOTE | 2021-10-28 12:11 | MM ---
Reason for exam: additional evaluation requested from abnormal screening. Last mammogram was performed 1 month ago. History: Patient is postmenopausal. Took estrogen for 3 years beginning at age 47. Took progesterone for 3 years beginning at age 47. Physical Findings: Nurse did not find any significant physical abnormalities on exam. MG 3D Work Up W/Cad RT Spot compression CC, spot compression MLO, and LM view(s) were taken of the right breast. Prior study comparison: October 12, 2021, bilateral MG 3d screening mammo w/cad. October 07, 2020, bilateral MG 3d screening mammo w/cad. The breast tissue is heterogeneously dense. This may lower the sensitivity of mammography. No distinct lesion persists on additional views. These results were verbally communicated with the patient and result sheet given to the patient on 10/28/21. ASSESSMENT: Benign, BI-RAD 2 RECOMMENDATION: Return to routine screening mammogram schedule for both breasts.
== END | disposition home or self-care (01) ==
LOC: RADMAMWWP 10:09
PROVIDERS: ATTEND Family Medicine
DX: R92.2 Inconclusive mammogram (principal); Z78.0 Asymptomatic menopausal state
CPT/HCPCS: 77065; G0279; 77061

== ENCOUNTER → 2022-10-13 | Outpatient (CLI) | payer MEDICARE ==
--- NOTE | 2022-10-16 10:44 | MM ---
Reason for Exam: Screening (asymptomatic). Last screening mammogram was performed 12 month(s) ago. Patient History: Menarche at age 8. First Full-Term at age 26. Postmenopausal. Patient has history of breast feeding. Estrogen for 3 years from age 47 until age 50. Progesterone for 3 years from age 47 until age 50. Risk Values: Lucinda 5 year model risk: 2.1%. NCI Lifetime model risk: 3.8%. Prior Study Comparison: 08/02/2017 Bilateral Screening Mammogram, [facility]. 08/15/2018 Bilateral Screening Mammogram, [facility]. 08/18/2019 Bilateral Screening Mammogram, [facility]. 10/07/2020 Bilateral Screening Mammogram, [facility]. 10/12/2021 Bilateral Screening Mammogram, [facility]. 10/28/2021 Right Diagnostic Mammogram, [facility]. Tissue Density: The breast tissue is heterogeneously dense. This may lower the sensitivity of mammography. Findings: Analyzed By CAD. Scattered benign-appearing calcifications. There is no suspicious group of microcalcifications or new suspicious mass in either breast. Overall Assessment: Benign, BI-RAD 2 Management: Screening Mammogram of both breasts in 1 year. A clinical breast exam by your physician is recommended on an annual basis and results should be correlated with mammographic findings. [facility] will attempt to contact patient to return for supplemental views and ultrasound if indicated. Electronically signed and approved by: Aorn You DO
== END | disposition home or self-care (01) ==
LOC: RADMAMWWP 08:52
PROVIDERS: ATTEND Family Medicine
DX: Z12.31 Encounter for screening mammogram for malignant neoplasm of breast (principal); Z78.0 Asymptomatic menopausal state
CPT/HCPCS: 77063; 77067

== ENCOUNTER → 2023-11-13 | Outpatient (CLI) | payer MEDICARE ==
--- NOTE | 2023-11-14 16:57 | MM ---
Reason for Exam: Screening (asymptomatic). Last mammogram was performed 1 year(s) and 1 month(s) ago. Patient History: Menarche at age 8. First Full-Term at age 26. Postmenopausal. Patient has history of breast feeding. Estrogen for 3 years from age 47 until age 50. Progesterone for 3 years from age 47 until age 50. Risk Values: Lucinda 5 year model risk: 2.1%. NCI Lifetime model risk: 3.4%. Prior Study Comparison: 10/12/2021 Bilateral Screening Mammogram, [facility]. 10/28/2021 Right Diagnostic Mammogram, [facility]. 10/13/2022 Bilateral MG 3D screening mammo w/cad, [facility]. Tissue Density: The breast tissue is heterogeneously dense. This may lower the sensitivity of mammography. Findings: Analyzed By CAD. Benign bilateral vascular calcifications. Benign oil cystic calcifications on the left. Areas of bilateral asymmetric density remain unchanged. There is no suspicious group of microcalcifications or new suspicious mass in either breast. Overall Assessment: Benign, BI-RAD 2 Management: Screening Mammogram of both breasts in 1 year. . Patient should continue monthly self-breast exams. A clinical breast exam by your physician is recommended on an annual basis. This exam should not preclude additional follow-up of suspicious palpable abnormalities. Note on Lucinda scores and lifetime risk: 1. A Lucinda score greater than 3% is considered moderate risk. If this is the case, consider specialist referral to assess eligibility for a risk reducing agent. 2. If overall lifetime risk for the development of breast cancer is 20% or higher, the patient may qualify for future screening with alternating mammogram and breast MRI. Electronically signed and approved by: Danielle Mercado M.D. Radiologist
== END | disposition home or self-care (01) ==
LOC: RADMAMWWP 07:45
PROVIDERS: ATTEND Family Medicine
DX: Z12.31 Encounter for screening mammogram for malignant neoplasm of breast (principal); Z78.0 Asymptomatic menopausal state
CPT/HCPCS: 77063; 77067

== ENCOUNTER → 2024-11-28 | Outpatient (CLI) | payer MEDICARE ==
--- NOTE | 2024-11-28 18:02 | MM ---
Reason for Exam: Screening (asymptomatic). Last mammogram was performed 1 year(s) and 1 month(s) ago. Patient History: Menarche at age 8. First Full-Term at age 26. Postmenopausal. Patient has history of breast feeding. Estrogen for 3 years from age 47 until age 50. Progesterone for 3 years from age 47 until age 50. Risk Values: Lucinda 5 year model risk: 2.0%. NCI Lifetime model risk: 3.1%. Prior Study Comparison: 10/28/2021 Right Diagnostic Mammogram, [facility]. 10/13/2022 Bilateral MG 3D screening mammo w/cad, [facility]. 11/13/2023 Bilateral MG 3D screening mammo w/cad, [facility]. Tissue Density: There are scattered areas of fibroglandular density. Findings: Analyzed By CAD. The pattern is symmetrical. There is some architectural distortion within the right craniocaudal projection which appear stable from comparison No suspicious groups of microcalcifications, spiculated or lobular masses, architectural distortion or other secondary signs of malignancy are mammographically apparent. Overall Assessment: Benign, BI-RAD 2 Management: Screening Mammogram of both breasts in 1 year. A negative mammogram report should not preclude additional follow up of suspicious palpable abnormalities. Patient should continue monthly self breast exam. A clinical breast exam by your physician is recommended on an annual basis and results should be correlated with mammographic findings. Note on Lucinda scores and lifetime risk: 1. A Lucinda score greater than 3% is considered moderate risk. If this is the case, consider specialist referral to assess eligibility for a risk reducing agent. 2. If overall lifetime risk for the development of breast cancer is 20% or higher, the patient may qualify for future screening with alternating mammogram and breast MRI. [facility], , 11/28/2024 5:59 PM. Electronically signed and approved by: Moreno Marshall D.O. Radiologis
== END | disposition home or self-care (01) ==
LOC: RADMAMWWP 09:18
PROVIDERS: ATTEND Family Medicine
DX: Z12.31 Encounter for screening mammogram for malignant neoplasm of breast (principal); Z78.0 Asymptomatic menopausal state; R92.323 Mammographic fibroglandular density, bilateral breasts
CPT/HCPCS: 77063; 77067